=== PATIENT | female | born 1950 | race Asian ===

== ENCOUNTER 2021-02-13 05:02 | Emergency (ER) | payer OTHER ==
[~2021-02-13] VITALS: Ht 162.6 cm; Wt 71.7 kg
[2021-02-13 05:02] VITALS: TEMP 97
[2021-02-13 05:33] LABS: PLATELET COUNT 233 K/uL (152-353)
[2021-02-13 05:43] LABS: POTASSIUM 4.4 mmol/L (3.6-5.2); SODIUM 140 mmol/L (136-145)
[2021-02-13 05:54] LABS: PARTIAL THROMBOPLASTIN TIME 22.8 SECONDS (24.5-33.6)
[2021-02-13 08:30] VITALS: BP 144/80
== END 2021-02-13 08:30 | disposition still patient (30) ==
LOC: ED 05:16
PROVIDERS: Emergency Medicine
DX: I26.99 Other pulmonary embolism without acute cor pulmonale (principal); F41.8 Other specified anxiety disorders; F03.90 Unspecified dementia, unspecified severity, without behavioral disturbance, psychotic disturbance, mood disturbance, and anxiety; E11.65 Type 2 diabetes mellitus with hyperglycemia; R06.82 Tachypnea, not elsewhere classified
CPT/HCPCS: 36415; 80053; 83880; 84484; 85027; 85379; 85610; 85730; 96374; 96375; 96376; 99284; J1200; J1644; J2060; J2405; J2920; Q9963

== ENCOUNTER 2021-04-23 23:11 | Emergency (ER) | payer OTHER ==
[~2021-04-23] VITALS: Ht 162.6 cm; Wt 73.9 kg
[~2021-04-23 23:11] MED LIST: ACET-206 PO; APIX1TAB PO; BENZ1TAB43 PO; FLUP10TA3 PO; FLUP25IN8 IM; HALO5TAB10 PO; METF500T PO; OLAN10INJ IM; OXCARBAZEPIN300 MG PO; RISP50IN IM; SEROQUEL300 MG PO; TRAZ50TA36 PO
[2021-04-23 23:15] VITALS: BP 154/92; TEMP 98.2
[2021-04-24] MEDS ORDERED: FLUP25IN8 IM (07:53)
[2021-04-24] MEDS ORDERED: APIX1TAB PO (07:54)
[2021-04-24] MEDS ORDERED: QUETIAPINE400 MG PO (07:58)
[2021-04-24] MEDS ORDERED: QUETIAPINE200 MG PO (07:59)
[2021-04-24] MEDS ORDERED: DOXEPIN HYDROCH25 MG PO (08:00)
[2021-04-24] MEDS ORDERED: CHLO50TA22 PO ×2 (08:01→08:02)
[2021-04-24] MEDS ORDERED: DIVALPROEX500 M1 PO (08:03)
[2021-04-24] MEDS ORDERED: APAP325 MG PO (08:04)
[2021-04-24] MEDS ORDERED: CHLO25IN INJ (08:05)
== END 2021-04-24 00:55 | disposition still patient (30) ==
LOC: ED 23:11
DX: F20.89 Other schizophrenia (principal); F03.91 Unspecified dementia, unspecified severity, with behavioral disturbance; Z11.52 Encounter for screening for COVID-19; Z04.6 Encounter for general psychiatric examination, requested by authority
CPT/HCPCS: 87635; 99283; U0003

== ENCOUNTER 2021-09-23 12:53 | Emergency (ER) | payer OTHER ==
[~2021-09-23] VITALS: Ht 162.6 cm; Wt 64.4 kg
[2021-09-23 12:53] VITALS: TEMP 96.8
[~2021-09-23 12:53] MED LIST changes: +APAP325 MG PO; +CHLO25IN INJ; +CHLO50TA22 PO; +DIVA250T2 PO; +DIVA500T2 PO; +DIVALPROEX500 M1 PO; +DOXEPIN HYDROCH25 MG PO; +INSUINJ20 SC; +OLANZAPINE5 MG PO; +PROPRANOLOL20 MG PO; +QUET300T PO; +QUETIAPINE200 MG PO; +QUETIAPINE400 MG PO
[2021-09-23 13:20] LABS: PLATELET COUNT 288 K/uL (152-353)
[2021-09-23 13:31] LABS: POTASSIUM 4.8 mmol/L (3.6-5.2)
[2021-09-23 14:30] VITALS: BP 128/74
[2021-09-23] MEDS ORDERED: MULTIVITAMI1 PO (20:44)
[2021-09-23] MEDS ORDERED: EXELON4.6 MG/24 TOP (20:45)
== END 2021-09-23 14:41 | disposition still patient (30) ==
LOC: ED 12:53
PROVIDERS: Emergency Medicine
DX: F03.91 Unspecified dementia, unspecified severity, with behavioral disturbance (principal); Z11.52 Encounter for screening for COVID-19; Z04.6 Encounter for general psychiatric examination, requested by authority
CPT/HCPCS: 80053; 85027; 87635; 93005; 99283; U0003

== ENCOUNTER 2021-10-03 10:58 | Outpatient (CLI) | payer OTHER ==
[~2021-10-03 10:58] MED LIST changes: +EXELON4.6 MG/24 TOP; +MULTIVITAMI1 PO
== END 2021-10-03 20:18 | disposition home or self-care (01) ==
LOC: RAD 10:58
PROVIDERS: ATTEND Internal Medicine
DX: M25.532 Pain in left wrist (principal); M25.432 Effusion, left wrist; W19.XXXA Unspecified fall, initial encounter